=== PATIENT | male | born 1945 | race Caucasian/White ===

== ENCOUNTER 2017-05-25 08:45 | Day surgery (SDC) | payer OTHER ==
[~2017-05-25] VITALS: Ht 170.2 cm; Wt 76.5 kg
[~2017-05-25 08:45] MED LIST: BUPIVACAINE/PF-EPI 0.5% 1:200K ONE; MULT-696 PO
[2017-05-25] MEDS ORDERED: FENTANYL PF 250 MCG/5ML ONE (08:56)
[2017-05-25] MEDS ORDERED: MIDAZOLAM 1 MG/ML, 2ML ONE (08:57)
[2017-05-25] MEDS ORDERED: LACTATED RINGERS 1,000 ML IV SCH (09:09)
[2017-05-25 09:12] VITALS: BP 148/87
[2017-05-25] MEDS ORDERED: LIDOCAINE 1%, 2ML ONE (09:18)
[2017-05-25] MEDS ORDERED: PLEASE ENTER HEIGHT AND WEIGHT MC SCH (09:30)
[2017-05-25] MEDS ORDERED: METOCLOPRAMIDE 5 MG/ML, 2ML IV PRN (10:30)
[2017-05-25] MEDS ORDERED: MEPERIDINE/PF 25MG/0.5ML IVPush PRN (10:30)
[2017-05-25] MEDS ORDERED: LABETALOL 5MG/ML, 20ML IV PRN (10:30)
[2017-05-25] MEDS ORDERED: hydrALAzine 20 MG/ML, 1ML IV PRN (10:30)
[2017-05-25] MEDS ORDERED: HYDROmorphone 1 MG/ML, 1ML IV PRN (10:30)
[2017-05-25] MEDS ORDERED: OXYcodone 5 MG/5 ML ORAL.SOL UDC PO PRN (10:30)
[2017-05-25] MEDS ORDERED: FENTANYL PF 100 MCG/2ML IV PRN (10:30)
[2017-05-25] MEDS ORDERED: ONDANSETRON 2MG/ML, 2ML IVPush PRN (10:30)
[2017-05-25] MEDS ORDERED: ACETAMINOPHEN 325 MG TABLET PO PRN (10:30)
[2017-05-25] MEDS ORDERED: PROMETHAZINE 25 MG/ML, 1ML IV PRN (10:30)
[2017-05-25] MEDS ORDERED: FENTANYL PF 100 MCG/2ML ONE (12:36)
[2017-05-25] MEDS ORDERED: OXYcodone 5 MG/5 ML ORAL.SOL UDC ONE (12:36)
[2017-05-25] MEDS ORDERED: ACETAMINOPHEN 650 MG/20.3 ML UDC ONE (12:36)
[2017-05-25] MEDS ORDERED: OXYcodone/APAP 5/325MG TABLET ONE (14:26)
[2017-05-25] MEDS ORDERED: OXYcodone/APAP 5/325MG TABLET PO PRN (14:30)
[2017-05-25] MEDS ORDERED: GLYCOPYRROLATE 0.2MG/1ML ONE (16:06)
[2017-05-25] MEDS ORDERED: PROPOFOL 10 MG/ML, 20ML ONE (16:06)
[2017-05-25] MEDS ORDERED: CEFAZOLIN 1,000 MG ONE (16:06)
[2017-05-25] MEDS ORDERED: ROCURONIUM 10 MG/ML ONE (16:06)
[2017-05-25] MEDS ORDERED: NEOSTIGMINE 1 MG/ML, 10ML ONE (16:06)
== END 2017-05-25 14:50 ==
LOC: OUT 08:45
PROVIDERS: ATTEND Surgery
DX: K40.90 Unilateral inguinal hernia, without obstruction or gangrene, not specified as recurrent (principal); Z98.890 Other specified postprocedural states; Z72.89 Other problems related to lifestyle
CPT/HCPCS: 49650; 93005; C1781; J0690; J2250; J2704; J2710; J3010; J7120; S2900; J3490